=== PATIENT | male | born 1940 | race Caucasian/White ===

== ENCOUNTER 2016-10-22 13:37 | Observation (INO) | payer MEDICARE ==
[2016-10-22] MEDS ORDERED: LOPRESSOR 5 MG/5 ML INJECTION IV ONE ×2 (14:11→14:23)
[2016-10-22] MEDS ORDERED: Sodium Chloride 0.9% 1000 ML 1,000 ML IV SCH (14:15)
--- NOTE | 2016-10-22 14:16 | ERPHSYRPT ---
- History of Present Illness Time Seen by Provider: 10/22/16 14:00 Source: patient Exam Limitations: clinical condition Patient Subjective Stated Complaint: SOB AND FEELING BAD SINCE THIS AM. Triage Nursing Assessment: AMBULATED TO ROOM PER SELF WITHOUT DIFFICULTY. NO APPARENT RESP DISTRESS NOTED. SKIN W/D, COLOR NORMAL. NO EDEMA NOTED. Physician History: PATIENT WITH A HISTORY OF HYPERLIPIDEMA COMPLAINS OF DYSPNEA AT REST UPON AWAKENING THIS MORNING ASSOCIATED WITH EXERTIONAL DYSPNEA. DENIES DIAPHORESIS, PALPITATIONS OR CHEST PAIN. HAS OCCASIONAL COUGH. Timing/Duration: today Activities at Onset: rest Severity of Dyspnea-Max: moderate Severity of Dyspnea-Current: moderate Possible Cause: no prior episodes Modifying Factors: Improves With: exertion Associated Symptoms: denies symptoms International travel in last 2 weeks: No Allergies/Adverse Reactions: acetaminophen [From Vicodin] Adverse Reaction (Verified 10/22/16 13:56) hydrocodone [From Vicodin] Adverse Reaction (Verified 10/22/16 13:56) Home Medications: Buspirone HCl [Buspar] 10 mg PO DAILY 10/22/16 [History] Clonazepam 0.5 mg [Klonopin 0.5 MG] 0.5 mg PO DAILY 10/22/16 [History] Escitalopram Oxalate [Lexapro] 20 mg PO DAILY 10/22/16 [History] Simvastatin [Zocor] 20 mg PO HS 10/22/16 [History] Tamsulosin HCl 0.4 mg [Flomax 0.4 MG] 0.4 mg PO HS 10/22/16 [History] Hx Tetanus, Diphtheria Vaccination/Date Given: No Hx Influenza Vaccination/Date Given: Yes Hx Pneumococcal Vaccination/Date Given: Yes - Review of Systems Constitutional: No Fever, No Chills Eyes: No Symptoms Ears, Nose, & Throat: No Symptoms Respiratory: Dyspnea, Dyspnea on Exertion (WANG), No Cough Cardiac: No Symptoms, No Chest Pain, No Edema, No Syncope Abdominal/Gastrointestinal: No Symptoms, No Abdominal Pain, No Nausea, No Vomiting, No Diarrhea Genitourinary Symptoms: No Symptoms, No Dysuria Musculoskeletal: No Symptoms, No Back Pain, No Neck Pain Skin: No Symptoms, No Rash Neurological: No Dizziness, No Focal Weakness, No Sensory Changes Psychological: No Symptoms Endocrine: No Symptoms All Other Systems: Reviewed and Negative - Past Medical History Pertinent Past Medical History: Yes Cardiac History: High Cholesterol, Hypertension Psycho-Social History: Anxiety - Past Surgical History Past Surgical History: Yes Gastrointestinal: Appendectomy, Hernia Repair - Social History Smoking Status: Former smoker Exposure to second hand smoke: No Drug Use: none Patient Lives Alone: No - Nursing Vital Signs Nursing Vital Signs: Initial Vital Signs Temperature 99.7 F Pulse Rate 95 Respiratory Rate 22 Blood Pressure [] 128/72 Pain Intensity 0 - Physical Exam General Appearance: no apparent distress, alert Eye Exam: PERRL/EOMI Neck Exam: normal inspection, supple Respiratory Exam: diminished breath sounds (AT BASES) Cardiovascular/Chest Exam: normal heart sounds, regular rate/rhythm Abdominal/Gastrointestinal Exam: soft, normal bowel sounds (OBESE, NONTENDER), No tenderness, No distention, No mass Extremity Exam: non-tender, normal range of motion, normal inspection, no calf tenderness, no pedal edema, pedal edema (+1 PRETIBIAL EDEMA) Peripheral Pulses Exam: carotid (R): 2+, carotid (L): 2+, femoral (R): 2+, femoral (L): 2+, dorsalis-pedis (R): 2+, dorsalis-pedis (L): 2+ Neurologic Exam: alert, oriented x 3, cooperative, personal banking advisor II-XII nml as tested, sensation nml, No motor deficits Skin Exam: normal color, warm, No dry SpO2 Interpretation: normal SpO2: 96 Oxygen Delivery: Room Air - Course EKG Interpreted by Me: RATE, Sinus Rhythm, Sinus Tach, NORMAL AXIS Rhythm Strip: 1st degree block - Radiology Exams Chest X-ray Interpretation: Discussed w/ radiologist (THERE IS NO FOCAL PNEMONIA, HEART FAILURE, OR OTHER ACUTE CARDIOPULMONARY DISEASE) - CT Exams Chest CT Interpretation: Tele-radiologist Report (NO EVIDENCE OF PULMONARY EMBOLISM, COPD CHANGES WITH MILD SCATTERED BILATERAL PERIPHERAL INTERSTITIAL FIBROSIS. NO AIRSPACE INFILTRATE TO SUGGEST PNEUMONIA OR OTHER ACTIVE LUNG DISEASE) Ordered Tests: Active Orders 24 hr Category Date Time Status Up Ad Velvet ROUTINE Activity 10/22/16 19:01 Ordered Admission/Status Order ROUTINE Care 10/22/16 19:00 Ordered Call Admit Doctor for Orders ON ADMISSION Care 10/22/16 19:00 Ordered Corner Block Cutter STAT Care 10/22/16 14:07 Active Code Status Order ROUTINE Care 10/22/16 19:00 Ordered EKG-ER Only STAT Care 10/22/16 14:07 Active IV Care Q6H Care 10/22/16 19:00 Ordered IV Insertion STAT Care 10/22/16 14:07 Active Oxygen-ED Only NASAL CANNULA 2 lpm Care 10/22/16 14:07 Active Telemetry ROUTINE Care 10/22/16 18:59 Ordered Vital Signs Q4H Care 10/22/16 18:59 Ordered Cardiac Diet Diet 10/22/16 Breakfast Ordered CHEST 2 VIEWS (PA AND LAT) Stat Exams 10/22/16 14:08 Completed CHEST WITH CONTRAST [CT] Stat Exams 10/22/16 15:00 Completed CBC W DIFF Stat Lab 10/22/16 14:20 Completed CMP Stat Lab 10/22/16 14:20 Completed D-DIMER QUANTITATION Stat Lab 10/22/16 14:20 Completed MAGNESIUM Stat Lab 10/22/16 14:20 Completed NT PRO BNP Stat Lab 10/22/16 14:20 Completed PROTIME WITH INR Stat Lab 10/22/16 14:20 Completed TROPONIN Q3H Lab 10/22/16 14:15 Completed TROPONIN Q3H Lab 10/22/16 17:35 Completed TROPONIN Q3H Lab 10/22/16 20:15 Ordered TROPONIN Q3H Lab 10/22/16 23:15 Ordered TROPONIN Q3H Lab 10/23/16 02:15 Ordered TSH [TSH, 3RD Generation] Stat Lab 10/22/16 18:16 Completed Oxygen NASAL CANNULA 2 lpm RT 10/22/16 18:59 Ordered Respiratory Therapy Consult ROUTINE RT 10/22/16 18:59 Ordered Transfer Order Routine Transfer 10/22/16 18:59 Ordered Medication Summary Generic Name Dose Route Start Last Admin Trade Name Freq PRN Reason Stop Dose Admin Acetaminophen 650 mg 10/22/16 18:59 Tylenol 325 Mg PO 11/21/16 18:58 Q4H PRN PRN PAIN AND/OR FEVER Sodium Chloride 1,000 mls @ 20 mls/hr 10/22/16 14:15 10/22/16 14:38 Sodium Chloride 0.9% 1000 Ml IV 11/21/16 14:14 20 mls/hr .Q24H JOSE Administration Discontinued Medications Generic Name Dose Route Start Last Admin Trade Name Freq PRN Reason Stop Dose Admin Metoprolol Tartrate 2.5 mg 10/22/16 14:11 10/22/16 14:38 Lopressor 5 Mg/5 Ml Injection IV 10/22/16 14:12 2.5 mg STAT ONE Administration Metoprolol Tartrate Confirm 10/22/16 14:23 Lopressor 5 Mg/5 Ml Injection Administered 10/22/16 14:24 Dose 5 mg IV .STK-MED ONE Lab/Rad Data: Laboratory Result Diagrams 10/22/16 14:20 10/22/16 14:20 Laboratory Results 10/22/16 10/22/16 10/22/16 Range/Units 18:16 17:35 14:20 WBC (4.0-10.5) K/mm3 RBC (4.1-5.6) M/mm3 Hgb (12.5-18.0) gm/dl Hct (42-50) % MCV (78-100) fl MCH (26-32) pg MCHC (32-36) g/dl RDW (11.5-14.0) % Plt Count (150-450) K/mm3 MPV (6-9.5) fl Gran % (36.0-66.0) % Lymphocytes % (24.0-44.0) % Monocytes % (0.0-12.0) % Eosinophils % (0.00-5.0) % Basophils % (0.0-0.4) % Basophils # (0-0.4) INR (0.8-3.0) D-Dimer (0.00-0.49) mg/L Sodium (136-145) mEq/L Potassium (3.5-5.1) mEq/L Chloride (98-107) mEq/L Carbon Dioxide (21-32) mEq/L Anion Gap (5-15) MEQ/L BUN (9-20) mg/dL Creatinine (0.55-1.30) mg/dl Estimated GFR ML/MIN Glucose (70-110) MG/DL Calcium (8.5-10.1) mg/dL Magnesium 1.6 L (1.8-2.4) mg/dL Total Bilirubin (0.2-1.0) mg/dL AST (15-37) U/L ALT (12-78) U/L Alkaline Phosphatase (46-116) U/L Troponin I < 0.017 (0.000-0.056) ng/ml NT-Pro-B Natriuret Pep (0-450) pg/ml Serum Total Protein (6.4-8.2) gm/dL Albumin (3.4-5.0) g/dL TSH 3rd Generation 0.727 (0.358-3.740) mIU/L 10/22/16 10/22/16 10/22/16 Range/Units 14:20 14:20 14:20 WBC 12.0 H (4.0-10.5) K/mm3 RBC 4.75 (4.1-5.6) M/mm3 Hgb 14.9 (12.5-18.0) gm/dl Hct 45.4 (42-50) % MCV 95.6 (78-100) fl MCH 31.4 (26-32) pg MCHC 32.8 (32-36) g/dl RDW 12.5 (11.5-14.0) % Plt Count 180 (150-450) K/mm3 MPV 9.6 H (6-9.5) fl Gran % 85.6 H (36.0-66.0) % Lymphocytes % 6.6 L (24.0-44.0) % Monocytes % 7.1 (0.0-12.0) % Eosinophils % 0.5 (0.00-5.0) % Basophils % 0.2 (0.0-0.4) % Basophils # 0.02 (0-0.4) INR 1.01 (0.8-3.0) D-Dimer 1.085 H* (0.00-0.49) mg/L Sodium 139 (136-145) mEq/L Potassium 4.4 (3.5-5.1) mEq/L Chloride 104 (98-107) mEq/L Carbon Dioxide 27.1 (21-32) mEq/L Anion Gap 12.2 (5-15) MEQ/L BUN 10 (9-20) mg/dL Creatinine 1.20 (0.55-1.30) mg/dl Estimated GFR > 60 ML/MIN Glucose 111 H (70-110) MG/DL Calcium 9.0 (8.5-10.1) mg/dL Magnesium (1.8-2.4) mg/dL Total Bilirubin 1.0 (0.2-1.0) mg/dL AST 27 (15-37) U/L ALT 21 (12-78) U/L Alkaline Phosphatase 68 (46-116) U/L Troponin I (0.000-0.056) ng/ml NT-Pro-B Natriuret Pep 155 (0-450) pg/ml Serum Total Protein 7.4 (6.4-8.2) gm/dL Albumin 3.8 (3.4-5.0) g/dL TSH 3rd Generation (0.358-3.740) mIU/L 10/22/16 Range/Units 14:15 WBC (4.0-10.5) K/mm3 RBC (4.1-5.6) M/mm3 Hgb (12.5-18.0) gm/dl Hct (42-50) % MCV (78-100) fl MCH (26-32) pg MCHC (32-36) g/dl RDW (11.5-14.0) % Plt Count (150-450) K/mm3 MPV (6-9.5) fl Gran % (36.0-66.0) % Lymphocytes % (24.0-44.0) % Monocytes % (0.0-12.0) % Eosinophils % (0.00-5.0) % Basophils % (0.0-0.4) % Basophils # (0-0.4) INR (0.8-3.0) D-Dimer (0.00-0.49) mg/L Sodium (136-145) mEq/L Potassium (3.5-5.1) mEq/L Chloride (98-107) mEq/L Carbon Dioxide (21-32) mEq/L Anion Gap (5-15) MEQ/L BUN (9-20) mg/dL Creatinine (0.55-1.30) mg/dl Estimated GFR ML/MIN Glucose (70-110) MG/DL Calcium (8.5-10.1) mg/dL Magnesium (1.8-2.4) mg/dL Total Bilirubin (0.2-1.0) mg/dL AST (15-37) U/L ALT (12-78) U/L Alkaline Phosphatase (46-116) U/L Troponin I < 0.017 (0.000-0.056) ng/ml NT-Pro-B Natriuret Pep (0-450) pg/ml Serum Total Protein (6.4-8.2) gm/dL Albumin (3.4-5.0) g/dL TSH 3rd Generation (0.358-3.740) mIU/L - Progress Progress Note: 10/22/16 14:14 ADMINISTERED IV NORMAL SALINE AT 20ML/HR, LOPRESSOR 2.5MG IV FOR TACHYCARDIA RATE [address] Espinoza (DISCUSSED WITH DR ESPINOZA AT 1800 FOR ADMISSION.) - Departure Time of Disposition: 18:58 Departure Disposition: Observation Clinical Impression: ACUTE DYSPNEA, ARRHYTHMIA SINUS TACHYCARDIA Condition: Stable Critical Care Time: No Referrals: SHAWN FUENTES [Primary Care Provider] -
[2016-10-22] MEDS ORDERED: Sodium Chloride 0.9% 1000 ML 1,000 ML ONE (14:23)
[2016-10-22 14:26] LABS: BASOPHIL % 0.2 % (0.0-0.4); Eosinophil % 0.5 % (0.00-5.0); Granulocytes % 85.6 % (36.0-66.0); Lymphocytes % 6.6 % (24.0-44.0); Mean Cell Volume 95.6 fl (78-100); Mean Corpuscular Hemoglobin 31.4 pg (26-32); Mean Platelet Volume 9.6 fl (6-9.5); Monocytes % 7.1 % (0.0-12.0); Platelet Count 180 K/mm3 (150-450); Red Blood Count 4.75 M/mm3 (4.1-5.6); Red Cell Distribution Width 12.5 % (11.5-14.0)
[2016-10-22 14:47] LABS: INR 1.01 (0.8-3.0); PROTIME 11.3 SECONDS (8.83-12.87)
--- NOTE | 2016-10-22 14:53 | XRAY ---
Exam: Two-view chest from 10/22/2016. Comparison: None. Indication: Shortness of breath, edema of legs. Findings: PA and 2 lateral upright chest films were obtained. The heart size is normal. There is mild tortuosity of the descending thoracic aorta. The level of inspiration is not deep.. The madelaine appear mildly prominent bilaterally. This could indicate vascular crowding within the madelaine from the decreased level of inspiration. However, bilateral perihilar lymphadenopathy is not completely excluded. Further evaluation with a CT of the chest with IV contrast may be helpful. There are several tiny granulomatous calcifications in the projection of the left hilum. The peripheral lungs reveal no air space infiltrates, peripheral vascular congestion, pneumothorax, or pleural effusion. EKG leads are seen in place. Mild diffuse thoracic vertebral endplate spurring is seen within the mid to lower thoracic spine. I also note mild to moderate narrowing of at least several lower thoracic interspaces. Mild focal eventration of the anterior aspect of the right hemidiaphragm is seen Impression: 1. The level of inspiration is not deep. The madelaine are mildly prominent bilaterally. I am not sure whether this represents normal vascular crowding or perhaps mild bilateral perihilar lymphadenopathy. Further evaluation with a CT of the chest with IV contrast may be helpful. 2. No focal pneumonia, heart failure, or other acute cardiopulmonary disease is seen. 3. Mild focal eventration of the anterior aspect of the right hemidiaphragm and moderate thoracic spondylosis are seen.
[2016-10-22 15:03] LABS: ALBUMIN 3.8 g/dL (3.4-5.0); ALKALINE PHOSPHATASE 68 U/L (46-116); ANION GAP 12.2 MEQ/L (5-15); BLOOD UREA NITROGEN 10 mg/dL (9-20); CHLORIDE 104 mEq/L (98-107); Carbon Dioxide 27.1 mEq/L (21-32); Glucose 111 MG/DL (70-110); Potassium 4.4 mEq/L (3.5-5.1); SGOT/AST 27 U/L (15-37); SGPT/ALT 21 U/L (12-78); SODIUM 139 mEq/L (136-145); Total Protein 7.4 gm/dL (6.4-8.2)
--- NOTE | 2016-10-22 17:08 | XRAY ---
Exam: CTA of the chest with IV contrast from 10/22/2016. Comparison: Two-view chest radiograph series from 10/22/2016. Indication: Marked dyspnea, shortness of breath, elevated blood pressure, elevated d-dimer (1085). Technique: Multiple post IV contrast axial images were obtained through the chest using 100 cc of Isovue-370 contrast material per PE protocol. Reconstructed coronal Images as well as reconstructed sagittal images were obtained of the chest. Findings: The central pulmonary vessels enhance well. I see no evidence of a suspicious filling defect to suggest a pulmonary embolus within the main pulmonary artery trunk, right or left main pulmonary arteries, or the proximal segmental branches bilaterally. The distal segmental branches of the pulmonary arteries, particularly within the lower lung sanchez, are not well opacified which slightly limits the study. I see no evidence of thoracic aortic aneurysm or dissection. Some nonspecific scattered lymph nodes are seen within the mediastinum and madelaine. For example, on axial image #57, there is a 1.3 cm in diameter short axis lymph node within the left AP window. Within the distal right paratracheal projection on axial image #102 there are 2 lymph nodes adjacent to each other, one measuring 1.0 cm in diameter and the other measuring 0.8 cm in diameter. Within the subcarinal projection just to the right of midline on axial image #42 there is a 1.0 cm in short axis lymph node. Within the right hilum on axial image #44 there is a 1.0 cm in short axis lymph node. Within the left hilum, there is 0.8 cm in diameter lymph node on axial image #42. These lymph nodes are relatively nonspecific and are likely postinflammatory or reactive. The thyroid gland appears relatively small, but is otherwise unremarkable. The peripheral lungs reveal mild COPD changes. There is some scattered peripheral increased interstitial markings which likely represent mild interstitial fibrosis. A pneumonic air space infiltrate is not seen. No pneumothorax or pleural effusion is seen. No acute process is seen within the upper abdomen. The adrenal glands appear unremarkable. Impression: 1. Mildly limited study, particularly for evaluation of the distal segmental arteries within the lower lobes. Otherwise, no evidence of pulmonary embolism is seen. No thoracic aortic aneurysm or aortic dissection is seen. 2. Mild nonspecific mediastinal and perihilar lymphadenopathy which is likely postinflammatory or reactive in nature. 3. COPD changes with mild scattered bilateral peripheral interstitial fibrosis. No airspace infiltrate to suggest pneumonia or other active lung disease is seen.
[2016-10-22] MEDS ORDERED: TYLENOL 325 MG PO PRN (18:59)
[2016-10-22] MEDS ORDERED: DUONEB 0.5-3 MG/3 ml Neb IH PRN (18:59)
[2016-10-22] MEDS: Klonopin 0.5 MG PO SCH (21:52)
[2016-10-22] MEDS: Toprol-Xl 25MG Tablets PO SCH (21:53)
[2016-10-22] MEDS ORDERED: Flomax 0.4 MG PO SCH (22:00)
[2016-10-22] MEDS ORDERED: ZOCOR 20MG PO SCH (22:00)
[2016-10-23 07:27] VITALS: BP 119/64; PULSE 58; O2SAT 96
--- NOTE | 2016-10-23 08:12 | PCM.SSS ---
History of Present Illness - Chief Complaint Chief Complaint: ACUTE DYSPNEA History of Present Illness: is a 76 year old male who awoke yesterday morning with acute onset of dyspnea. He had it at rest, there was no chest pain, diaphoresis, nausea, vomiting or other symptoms. He has seen Dr Mcknight and had a cardiac workup but it was several years ago. His bp was quite high on arrival, after treatment of hypertension his dyspnea resolved and he has had no complaints since arrival to the floor. - Review of Systems Constitutional: No Fever, No Chills Respiratory: Short Of Breath, No Cough, No Orthopnea, No Wheezing Cardiac: No Chest Pain Abdominal/Gastrointestinal: No Abdominal Pain, No Nausea, No Vomiting, No Diarrhea Genitourinary Symptoms: No Dysuria Skin: No Rash Neurological: No Dizziness, No Focal Weakness, No Sensory Changes All Other Systems: Reviewed and Negative Medications & Allergies Home Medications: Home Medication List Aspirin [Adult Low Dose Aspirin EC] 81 mg PO DAILY 10/22/16 [History Confirmed 10/22/16] Buspirone HCl [Buspar] 10 mg PO DAILY 10/22/16 [History Confirmed 10/22/16] Clonazepam 0.5 mg [Klonopin 0.5 MG] 0.5 mg PO DAILY PRN PRN 10/22/16 [ History Confirmed 10/22/16] Escitalopram Oxalate [Lexapro] 20 mg PO DAILY 10/22/16 [History Confirmed ] Multivitamin [Multivitamins] 1 each PO DAILY 10/22/16 [History Confirmed ] Psyllium Husk [Metamucil] 0.52 gm PO DAILY 10/22/16 [History Confirmed 10/22/16] Simvastatin [Zocor] 40 mg PO HS 10/22/16 [History Confirmed 10/22/16] Tamsulosin HCl 0.4 mg [Flomax 0.4 MG] 0.4 mg PO HS 10/22/16 [History Confirmed 10/22/16] Metoprolol Succinate 25 mg Xl* [Toprol-Xl 25MG Tablets] 25 mg PO BID #60 tab 10/23/16 [Rx] Allergies/Adverse Reactions: Allergies Allergy/AdvReac Type Severity Reaction Status Date / Time acetaminophen [From Vicodin] AdvReac Verified 10/22/16 13:56 hydrocodone [From Vicodin] AdvReac Verified 10/22/16 19:44 - Past Medical History Past Medical History: Yes Neurological History: No Pertinent History ENT History: Cataracts Cardiac History: High Cholesterol, Hypertension Respiratory History: No Pertinent History Endocrine Medical History: No Pertinent History Musculoskelatal History: No Pertinent History GI Medical History: No Pertinent History History: No Pertinent History Pyscho-Social History: Anxiety Male Reproductive Disorders: No Pertinent History - Past Surgical History Past Surgical History: Yes Neuro Surgical History: No Pertinent History Cardiac History: No Pertinent History Respiratory Surgery: No Pertinent History GI Surgical History: Appendectomy, Hernia Repair Genitourinary Surgical Hx: No Pertinent History Musculskeletal Surgical Hx: No Pertinent History Male Surgical History: No Pertinent History - Social History Smoking Status: Former smoker Exposure to second hand smoke: No Alcohol: None Drug Use: none - Physical Exam Vital Signs: Vital Signs - 24 hr Temp Pulse Resp BP Pulse Ox 10/23/16 07:26 98.2 F 58 L 18 119/64 96 10/23/16 04:00 98.2 F 61 20 116/62 94 L 10/22/16 23:33 98.3 F 57 L 18 129/67 95 10/22/16 20:00 98.3 F 91 H 20 138/79 94 L 10/22/16 19:43 98.3 F 91 H 20 138/79 91 L 10/22/16 19:40 97 H 18 97 10/22/16 19:03 96 10/22/16 18:29 95 H 22 97 10/22/16 17:03 91 H 22 128/72 96 10/22/16 15:16 94 H 16 122/87 96 10/22/16 14:35 101 H 16 130/80 99 10/22/16 13:39 99.7 F 101 H 18 163/95 96 Oxygen-Last 24 hours O2 Percentage 2 Liters = 28% O2 Percentage 2 Liters = 28% O2 Percentage 2 Liters = 28% O2 Percentage 2 Liters = 28% O2 Percentage 2 Liters = 28% O2 Percentage 2 Liters = 28% O2 Percentage 2 Liters = 28% General Appearance: no apparent distress, alert Respiratory Exam: normal breath sounds, lungs clear, No respiratory distress Cardiovascular Exam: regular rate/rhythm, normal heart sounds, normal peripheral pulses Gastrointestinal/Abdomen Exam: soft, normal bowel sounds, No tenderness, No mass Extremity Exam: normal inspection, normal range of motion, pelvis stable Skin Exam: normal color, warm, dry, No rash Results - Labs Lab/Micro Results: Lab Results-Last 24 Hours 10/22/16 10/22/16 10/23/16 Range/Units 20:35 23:10 02:15 Troponin I < 0.017 < 0.017 < 0.017 (0.000-0.056) ng/ml - Other Procedures and Tests Respiratory Therapy 10/22/16 18:59 Oxygen NASAL CANNULA 2 lpm Respiratory Therapy Consult ROUTINE 10/22/16 19:45 neb [Respiratory Nebulizer] PRN Assessment/Plan (1) Dyspnea Current Visit: Yes Status: Acute Assessment & Plan: workup negative, has no PE and DE ruled out. resolved with treatment of htn, likely related to hypertensive urgency. Code(s): R06.00 - DYSPNEA, UNSPECIFIED (2) Hypertensive urgency Current Visit: Yes Status: Acute Assessment & Plan: home on toprol, bp well controlled and all symptoms resolved Code(s): I16.0 - HYPERTENSIVE URGENCY Hospital Summary - Vitals & Intake/Output Vital Signs: Vital Signs Temperature 98.2 F 10/23/16 07:26 Pulse Rate 58 L 10/23/16 07:26 Respiratory Rate 18 10/23/16 07:26 Blood Pressure 119/64 10/23/16 07:26 O2 Sat by Pulse Oximetry 96 10/23/16 07:26 Oxygen-Last Documented O2 Percentage 2 Liters = 28% Intake & Output: Intake & Output 10/20/16 10/21/16 10/22/16 10/23/16 11:59 11:59 11:59 11:59 Intake Total 1323 Balance 1323 Weight 127.233 kg - Lab Result Diagrams: 10/22/16 14:20 10/22/16 14:20 Lab Results-Last 24 Hrs: Lab Results-Last 24 Hours 10/22/16 10/22/16 10/23/16 Range/Units 20:35 23:10 02:15 Troponin I < 0.017 < 0.017 < 0.017 (0.000-0.056) ng/ml - Procedures and Test Procedures and Tests throughout Hospitalization: Therapy Orders & Screens 10/22/16 18:59 Oxygen NASAL CANNULA 2 lpm Comment: Respiratory Therapy Consult ROUTINE Comment: Reason For Exam: 10/22/16 19:45 neb [Respiratory Nebulizer] PRN Comment: DUONEB Q4 PRN Diagnosis: ACUTE DYSPNEA - Discharge Disposition: Home, Self-Care Condition: Stable Prescriptions: New Metoprolol Succinate 25 mg Xl* [Toprol-Xl 25MG Tablets] 25 mg PO BID #60 tab Continue Simvastatin [Zocor] 40 mg PO HS Escitalopram Oxalate [Lexapro] 20 mg PO DAILY Clonazepam 0.5 mg [Klonopin 0.5 MG] 0.5 mg PO DAILY PRN PRN PRN Reason: anxiety Buspirone HCl [Buspar] 10 mg PO DAILY Tamsulosin HCl 0.4 mg [Flomax 0.4 MG] 0.4 mg PO HS Multivitamin [Multivitamins] 1 each PO DAILY Aspirin [Adult Low Dose Aspirin EC] 81 mg PO DAILY Psyllium Husk [Metamucil] 0.52 gm PO DAILY Follow up with: SHAWN FUENTES [Primary Care Provider] -
[2016-10-23] MEDS: Klonopin 0.5 MG PO SCH (08:28)
[2016-10-23] MEDS: Toprol-Xl 25MG Tablets PO SCH (08:28)
[2016-10-23] MEDS ORDERED: Lexapro 10 MG PO SCH (10:00)
[2016-10-23] MEDS ORDERED: ECOTRIN 81 MG PO SCH (10:00)
[2016-10-23] MEDS ORDERED: PSYLLIUM HUSK 0.52 GM PO SCH (10:00)
[2016-10-23] MEDS ORDERED: BUSPAR 5 MG PO SCH (10:00)
[2016-10-23] MEDS ORDERED: THERAGRAN MULTIVITAMIN PO SCH (10:00)
[2016-10-23] MEDS ORDERED: NON-FORMULARY ITEM (Buspirone Hcl [Buspar] 10 MG) PO SCH (10:00)
[2016-10-23] MEDS ORDERED: Metamucil PACKET PO SCH (10:00)
[2016-10-23] MEDS ORDERED: NON-FORMULARY ITEM (Multivitamin [Multivitamins] 1 EACH) PO SCH (10:00)
[2016-10-23] MEDS ORDERED: NON-FORMULARY ITEM (Escitalopram Oxalate [Lexapro] 20 MG) PO SCH (10:00)
== END 2016-10-23 10:30 | disposition home or self-care (01) ==
LOC: ED 13:37 → MED SURG 19:18
PROVIDERS: ADMIT Family Medicine; ATTEND Family Medicine
DX: I16.0 Hypertensive urgency (principal); E78.5 Hyperlipidemia, unspecified; F41.9 Anxiety disorder, unspecified; Z79.899 Other long term (current) drug therapy
CPT/HCPCS: 36000; 36415; 71020; 71260; 80053; 83735; 83880; 84443; 84484; 85025; 85379; 85610; 93005; 93041; 93268; 94760; 96360; 96361; 96374; 99285; G0378; A9270-GY

== ENCOUNTER 2017-07-31 19:05 | Emergency (ER) | payer MEDICARE, OTHER ==
--- NOTE | 2017-07-31 20:51 | ERPHSYRPT ---
- History of Present Illness Time Seen by Provider: 07/31/17 20:40 Source: patient Exam Limitations: no limitations Patient Subjective Stated Complaint: Right Shoulder Pain Triage Nursing Assessment: Pt presents to the ED with complaints of right shoulder pain after falling. Pt states he was playing with his dog when he tripped and fell. Denies LOC, denies other complaints. PERRL. Pt denies hitting his head, denies other complaints. Physician History: 77 y/o male comes to the ER with complaints of right shoulder pain after falling while walking his dog. Pt landed on his right shoulder. Pt admits to pain with lifting the arm. Pt describes the pain as sharp, intermittent, 3/10 and not relieved by advil. No other injuries. Occurred: just prior to arrival Method of Injury: fell Quality: constant Severity of Pain-Max: mild Severity of Pain-Current: mild Extremities Pain Location: shoulder: right Modifying Factors: Improves With: nothing Associated Symptoms: none Allergies/Adverse Reactions: acetaminophen [From Vicodin] Adverse Reaction (Verified 10/22/16 13:56) hydrocodone [From Vicodin] Adverse Reaction (Verified 10/22/16 19:44) made pt confused Home Medications: Aspirin [Adult Low Dose Aspirin EC] 81 mg PO DAILY 10/22/16 [History] Buspirone HCl [Buspar] 10 mg PO DAILY 10/22/16 [History] Clonazepam 0.5 mg [Klonopin 0.5 MG] 0.5 mg PO DAILY PRN PRN 10/22/16 [ History] Escitalopram Oxalate [Lexapro] 20 mg PO DAILY 10/22/16 [History] Multivitamin [Multivitamins] 1 each PO DAILY 10/22/16 [History] Psyllium Husk [Metamucil] 0.52 gm PO DAILY 10/22/16 [History] Simvastatin [Zocor] 40 mg PO HS 10/22/16 [History] Tamsulosin HCl 0.4 mg [Flomax 0.4 MG] 0.4 mg PO HS 10/22/16 [History] Hx Tetanus, Diphtheria Vaccination/Date Given: Yes Hx Influenza Vaccination/Date Given: Yes Hx Pneumococcal Vaccination/Date Given: Yes Immunizations Up to Date: Yes - Review of Systems Constitutional: No Fever, No Chills Eyes: No Symptoms Ears, Nose, & Throat: No Symptoms Respiratory: No Cough, No Dyspnea Cardiac: No Chest Pain, No Edema, No Syncope Abdominal/Gastrointestinal: No Abdominal Pain, No Nausea, No Vomiting, No Diarrhea Genitourinary Symptoms: No Dysuria Musculoskeletal: Arthralgias, Joint Pain, No Back Pain, No Neck Pain Skin: No Rash Neurological: No Dizziness, No Focal Weakness, No Sensory Changes Psychological: No Symptoms Endocrine: No Symptoms All Other Systems: Reviewed and Negative - Past Medical History Pertinent Past Medical History: Yes Neurological History: No Pertinent History ENT History: Cataracts Cardiac History: High Cholesterol, Hypertension Respiratory History: No Pertinent History Endocrine Medical History: No Pertinent History Musculoskeletal History: No Pertinent History GI Medical History: No Pertinent History History: No Pertinent History Psycho-Social History: Anxiety Male Reproductive Disorders: No Pertinent History - Past Surgical History Past Surgical History: Yes Neuro Surgical History: No Pertinent History Cardiac: No Pertinent History Respiratory: No Pertinent History Gastrointestinal: Appendectomy, Hernia Repair Genitourinary: No Pertinent History Musculoskeletal: No Pertinent History Male Surgical History: No Pertinent History - Social History Smoking Status: Former smoker Exposure to second hand smoke: No Drug Use: none Patient Lives Alone: Yes - Nursing Vital Signs Nursing Vital Signs: Initial Vital Signs Temperature 98.4 F 07/31/17 20:24 Pulse Rate 55 L 07/31/17 20:24 Respiratory Rate 16 07/31/17 20:24 Blood Pressure 131/82 07/31/17 20:24 O2 Sat by Pulse Oximetry 95 07/31/17 20:24 Pain Scale Pain Intensity 3 - Physical Exam General Appearance: alert Eyes, Ears, Nose, Throat Exam: moist mucous membranes Neck Exam: non-tender, supple Cardiovascular/Respiratory Exam: chest non-tender, normal breath sounds, regular rate/rhythm, no respiratory distress Abdominal Exam: non-tender, No guarding Back Exam: normal inspection, No vertebral tenderness Shoulder Exam: normal ROM, bone tenderness, No swelling Elbow/Forearm Exam: normal inspection Wrist Exam: normal inspection Hand Exam: normal inspection Neuro/Tendon Exam: normal sensation, normal motor functions Mental Status Exam: alert, oriented x 3, cooperative Skin Exam: normal color, warm, dry SpO2: 95 Oxygen Delivery: Room Air Ordered Tests: Active Orders 24 hr Category Date Time Status SHOULDER Stat Exams 07/31/17 20:51 Ordered - Progress Progress: improved Progress Note: 07/31/17 21:13 The shoulder x ray is within normal limits. The patient will be placed in a sling and will be given a short course of tylenol # 3. The patient will F/U with PCP for any additional recommendations for shoulder pain. - Departure Time of Disposition: 21:14 Departure Disposition: Home Clinical Impression: Shoulder pain Qualifiers: Chronicity: acute Laterality: right Qualified Code(s): M25.511 - Pain in right shoulder Condition: Stable Critical Care Time: No Referrals: SHAWN FUENTES [Primary Care Provider] - Instructions: Shoulder Sprain (DC) Additional Instructions: Follow up with your primary care doctor if you should continue to have pain. Prescriptions: Acetaminophen with Codeine [Tylenol #3 (Acetaminophen-Cod #3) Tablet] 1 each PO QID PRN #10 tablet PRN Reason: Pain
[2017-07-31] MEDS ORDERED: Tylenol #3 Tablet PO ONE (21:16)
[2017-07-31] MEDS ORDERED: Tylenol #3 Tablet ONE (21:27)
[2017-07-31 21:38] VITALS: BP 137/81; PULSE 60; O2SAT 98
--- NOTE | 2017-08-01 09:48 | XRAY ---
Indication: Pain following fall. Comparison: None 3 views of the right shoulder demonstrates mild AC degenerative arthropathy. No other bony, reticular, or soft tissue abnormalities.
== END 2017-07-31 21:46 | disposition home or self-care (01) ==
LOC: ED 19:05
DX: M25.511 Pain in right shoulder (principal); W01.0XXA Fall on same level from slipping, tripping and stumbling without subsequent striking against object, initial encounter; Y93.K1 Activity, walking an animal; Z79.899 Other long term (current) drug therapy
CPT/HCPCS: 73030; 99282; A9270-GY